=== PATIENT | female | born 1980 ===

== ENCOUNTER 2017-05-23 08:00 | Emergency (ER) | payer OTHER ==
[2017-05-23 08:11] VITALS: BP 121/75; PULSE 65; RESP 19; TEMP 97.7; O2SAT 100
[2017-05-23] MEDS ORDERED: Sodium Chloride 0.9% 1,000 ML IV STA (08:30)
[2017-05-23 09:06] LABS: BASO % 0.3 % (0.0-2.0); EOS # 0.1 K/uL (0.0-0.7); EOS % 1.1 % (0.0-4.0); HEMATOCRIT 37.6 % (34.0-47.0); LYMPH # 1.7 K/uL (1.0-4.3); LYMPH % 34.2 % (20.0-40.0); MEAN CELL VOLUME 82.6 fl (81.0-99.0); MEAN CORPUSCULAR HEMOGLOBIN 27.2 pg (27.0-31.0); MEAN CORPUSCULAR HGB CONC 32.9 g/dL (33.0-37.0); MEAN PLATELET VOLUME 8.4 fl (7.2-11.7); MONO # 0.4 K/uL (0.0-0.8); MONO % 8.3 % (0.0-10.0); NEUT # 2.7 K/uL (1.8-7.0); NEUT % 56.1 % (50.0-75.0); NRBC % 0.1 % (0.0-0.0); RED CELL DISTRIBUTION WIDTH 14.1 % (11.5-14.5); WHITE BLOOD COUNT 4.9 K/uL (4.8-10.8)
[2017-05-23 09:08] LABS: RBC URINE < 1 /hpf (0-3); URINE BILIRUBIN NEGATIVE (NEGATIVE); URINE BLOOD NEGATIVE (NEGATIVE); URINE COLOR YELLOW (YELLOW); URINE GLUCOSE (UA) NEG (Normal); URINE KETONE NEGATIVE (NEGATIVE); URINE LEUKOCYTE ESTERASE TRACE Leu/uL (Negative); URINE PROTEIN NEGATIVE (NEGATIVE); URINE UROBILINOGEN 0.2-1.0 mg/dL (0.2-1.0); WBC URINE 1 /hpf (0-5)
[2017-05-23 09:14] LABS: ALB/GLOB RATIO 1.4 (1.0-2.1); ALKALINE PHOSPHATASE 69 U/L (38-126); ALT/SGPT 33 U/L (9-52); AST/SGOT 26 U/L (14-36); BILIRUBIN,TOTAL 0.3 mg/dl (0.2-1.3); BLOOD UREA NITROGEN 13 mg/dl (7-17); CALCIUM 9.2 mg/dL (8.4-10.2); CARBON DIOXIDE 27 mmol/L (22-30); CHLORIDE 104 mmol/L (98-107); GFR AFRICAN-AMERICAN > 60; GLUCOSE,RANDOM 88 mg/dL (65-105); SODIUM 141 mmol/l (132-148); TOTAL PROTEIN 7.6 G/DL (6.3-8.2)
[2017-05-23 09:16] LABS: POTASSIUM 4.5 MMOL/L (3.6-5.0)
--- NOTE | 2017-05-23 12:22 | US ---
Pelvic ultrasound dated 05/23/2017. History: Left lower quadrant pain. History of ovarian cyst. Rule out torsion. Transabdominal -transvaginal sonographic evaluation of the pelvis performed. Comparison made with prior pelvic ultrasound as well as CT scan abdomen and pelvis both dated 01/02/2016. The findings: The uterus is anteverted measuring approximately 10.0 x 6.2 x 4.4 cm. Endometrial stripe measures 2.7 mm. . Apparent in situ IUD Uterus is heterogeneous however no definitive discrete fibroid seen. There is a small amount of fluid present within the cul de sac. Right ovary is prominent measuring 5 cm x 2.4 cm x 2.0 cm but contains a cyst measuring 1.7 x 1.4 x 1.4 the the cm. Right ovary exhibits arterial flow. Left ovary measures 3.2 x 3.0 x 2.2 cm . There is also either a septated cyst or 2 adjacent smaller cysts measuring approximately 2.5 x 1.9 x 1.9 cm. Left ovary also exhibits arterial flow Impression: In situ IUD. Bilateral ovarian cysts. Both ovaries exhibit arterial flow. Small amount of fluid present within the cul de sac
--- NOTE | 2017-05-23 13:55 | ED PDOC ---
HPI: Abdomen Time Seen by Provider: 05/23/17 08:24 Chief Complaint (Nursing): Abdominal Pain Chief Complaint (Provider): abdominal pain History Per: Patient History/Exam Limitations: no limitations Onset/Duration Of Symptoms: Days (x2) Current Symptoms Are (Timing): Still Present Severity: Mild Location Of Pain/Discomfort: LLQ Quality Of Discomfort: Sharp Associated Symptoms: denies: Fever, Nausea, Vomiting, Diarrhea Additional Complaint(s): Patient is a 37 year old female presenting to the ED complaining of left lower pelvic pain x2 days. Pain is described as sharp and consistent with her prior history of ovarian cyst. Denies fever, nausea, vomiting, diarrhea, vaginal bleeding, or discharge. pmd: none Abnormal Vaginal Bleeding: No Past Medical History Reviewed: Historical Data, Nursing Documentation, Vital Signs Vital Signs: Last Vital Signs Temp 97.7 F 05/23/17 08:10 Pulse 65 05/23/17 08:10 Resp 19 05/23/17 08:10 BP 121/75 05/23/17 08:10 Pulse Ox 100 05/23/17 08:10 - Medical History PMH: No Chronic Diseases - Surgical History Surgical History: No Surg Hx - Family History Family History: States: No Known Family Hx - Immunization History Hx Tetanus Toxoid Vaccination: No Hx Influenza Vaccination: No Hx Pneumococcal Vaccination: No - Home Medications Home Medications: Ambulatory Orders Medication Instructions Recorded Cyclobenzaprine HCl [Flexeril] 1 tab PO TID PRN #25 tab 03/27/15 Naproxen [Naprosyn] 1 tab PO BID PRN #25 tab 03/27/15 oxyCODONE/Acetaminophen [Percocet 1 tab PO QID PRN #20 tab 03/27/15 5/325 mg Tab] Nitrofurantoin Macrocrystals 100 mg PO BID #13 cap 01/02/16 [Macrobid] Phenazopyridine HCl [Pyridium] 100 mg PO TID PRN #6 tab 01/02/16 oxyCODONE/Acetaminophen [Percocet 1 ea PO TID PRN #6 tab 05/23/17 5/325 mg Tab] traMADol [Ultram] 50 mg PO TID PRN #12 tab 05/23/17 - Allergies Allergies/Adverse Reactions: Allergies Allergy/AdvReac Type Severity Reaction Status Date / Time No Known Allergies Allergy Verified 03/27/15 21:51 Review of Systems ROS Statement: Except As Marked, All Systems Reviewed And Found Negative Constitutional: Negative for: Fever Gastrointestinal: Positive for: Abdominal Pain. Negative for: Nausea, Vomiting , Diarrhea Genitourinary Female: Negative for: Vaginal Discharge, Vaginal Bleeding Physical Exam - Reviewed Nursing Documentation Reviewed: Yes Vital Signs Reviewed: Yes - Physical Exam Appears: Positive for: Well, Non-toxic, No Acute Distress Head Exam: Positive for: ATRAUMATIC, NORMAL INSPECTION, NORMOCEPHALIC Skin: Positive for: Normal Color, Warm, DRY Eye Exam: Positive for: EOMI, Normal appearance, PERRL Neck: Positive for: Normal, Painless ROM Cardiovascular/Chest: Positive for: Regular Rate, Rhythm. Negative for: Gallop , Murmur Respiratory: Positive for: Normal Breath Sounds. Negative for: Accessory Muscle Use, Rhonchi, Respiratory Distress Gastrointestinal/Abdominal: Positive for: Soft, Tenderness (Mild tenderness greater toward the left than right lower pelvis ). Negative for: Mass, Distended, Guarding, Rebound Extremity: Positive for: Normal ROM Neurologic/Psych: Positive for: Alert, Oriented - Laboratory Results Result Diagrams: 05/23/17 08:50 05/23/17 08:50 - ECG O2 Sat by Pulse Oximetry: 100 (RA) Pulse Ox Interpretation: Normal Medical Decision Making Medical Decision Making: Time: Impression: Plan: CMP UPreg UDip CBC UA US Pelvis US showed ovarian cyst no free fluid or torsion patient given Toradol and IVF 1:45 Results interpreted by Basilia ROSALES. patient reports improvement in symptoms and Patient feels better. Discussed results and plan with patient who expresses understanding. Counseling was provided regarding the diagnosis and prognosis. All questions answered and there is agreement with the plan to discharge home with instructions. Patient stable for discharge. Return if symptoms persist or worsen. Scribe Attestation: Documented by Doron Easley acting as a scribe for Miguel Dominique MD. Scribe Attestation: All medical record entries made by the Scribe were at my direction and personally dictated by me. I have reviewed the chart and agree that the record accurately reflects my personal performance of the history, physical exam, medical decision making, and the department course for this patient. I have also personally directed, reviewed, and agree with the discharge instructions and disposition. Disposition - Clinical Impression Clinical Impression: Ovarian cyst - Patient ED Disposition Is Patient to be Admitted: No Counseled Patient/Family Regarding: Studies Performed, Diagnosis, Need For Followup, Rx Given - Disposition Referrals: David Mckenna [Outside] Disposition: Routine/Home Disposition Time: 01:45 Condition: STABLE Additional Instructions: Followup with [employer] doctor for further testing and treatment of bilateral ovarian cysts. Return to ER for any new or worsening symptoms. Take pain medicine as directed. Prescriptions: oxyCODONE/Acetaminophen [Percocet 5/325 mg Tab] 1 ea PO TID PRN #6 tab PRN Reason: Pain, Severe (8-10) traMADol [Ultram] 50 mg PO TID PRN #12 tab PRN Reason: Pain, Moderate (4-7) Instructions: Ovarian Cyst (ED) Print Language: [id number]
== END 2017-05-23 13:55 | disposition home or self-care (01) ==
LOC: H.ER 08:00
DX: N83.201 Unspecified ovarian cyst, right side (principal); N83.202 Unspecified ovarian cyst, left side